=== PATIENT | male | born 1975 | race American Indian/Alaskan Native ===

== ENCOUNTER 2017-05-08 05:22 | Emergency (ER) | payer OTHER ==
[2017-05-08 05:34] VITALS: BP 131/74
--- NOTE | 2017-05-08 06:36 | XRay Report ---
FINAL REPORT EXAM: XR CHEST ROUTINE 2V HISTORY: VIJAY TECHNIQUE: PA and lateral views of the chest were submitted. FINDINGS: The lungs are clear. The heart size is normal. Pleural fluid is not seen. The skeletal structures are well-maintained. IMPRESSION: No active chest disease.
--- NOTE | 2017-05-08 07:57 | Emergency Department Report ---
HPI - General Chief Complaint: Dyspnea/Respdistress Time Seen by Provider: 05/08/17 07:13 - HPI HPI: Patient here before that he woke up in a panic couldn't breathe and took 25 mg of Benadryl tablet 15 minutes prior to coming to the hospital doesn't know what causes it. He said he is better now. Denies any chest pain or shortness of breath. He states that he has a history of high blood pressure and takes 2 blood pressure medication but he doesn't know the name. no similar episode in the past. He said that he feels like there is something stuck in his throat but he has not eaten anything since yesterday evening and he felt fine when he went to bed. Denies any fever or chills. Denies any cough or drainage the back of his throat. Denies any swelling of tongue or lips. Denies any swelling of throat or difficulty breathing at present. Denies any burning sensation in his mid chest. Denies any headache or nausea. Denies any pain and pain score is 0-10 ED Past Medical Hx - Past Medical History Previous Medical History?: Yes Hx Hypertension: Yes - Surgical History Past Surgical History?: Yes Additional Surgical History: leg sx - Family History Family history: hypertension - Social History Smoking Status: Never Smoker Substance Use Type: None ED Review of Systems ROS: Stated complaint: FEELS LIKE THROAT CLOSING UP, DIFFICULT BREATHING Other details as noted in HPI Comment: All other systems reviewed and negative Constitutional: no symptoms reported Eyes: denies: eye pain, eye discharge ENT: other. denies: ear pain, throat pain, congestion Respiratory: no symptoms reported, other (she reported that he had an episode where he had problem with breathing and this morning). denies: cough, orthopnea , shortness of breath, SOB with exertion, SOB at rest, stridor, wheezing Cardiovascular: other. denies: chest pain, palpitations, dyspnea on exertion, orthopnea, edema, syncope, paroxysmal nocturnal dyspnea Gastrointestinal: denies: abdominal pain, nausea, vomiting, diarrhea Musculoskeletal: denies: back pain, joint swelling, arthralgia, myalgia Skin: denies: rash Neurological: denies: headache, weakness, numbness, paresthesias, confusion, abnormal gait, vertigo Psychiatric: denies: anxiety Physical Exam - Physical Exam Vital Signs: Vital Signs 05/08/17 05:27 Temperature 97.7 F Pulse Rate 84 Respiratory 20 Rate Blood Pressure 131/74 O2 Sat by Pulse 100 Oximetry General: This is a 41-year-old male well-nourished well-developed in no acute distress. Nontoxic in appearance Physical Exam: Head: Normocephalic, atraumatic, no abrasion, no bruising and no contusion. Eyes: Biateral pupils equal and reactive to light, bilateral EOM intact.. Bilateral conjunctival and sclera without injection, normal accommodation. No nystagmus Mouth: Moist, no pharyngeal exudate or erythema. No peritonsillar abscesses. Uvula is midline and oral airways patent. Ears: Bilateral TMs pearly garcia Bilateral EAC without any redness swelling or drainage. No mastoid bone tenderness Nose: Lateral nasal mucosa are normal without any drainage Maxillary and frontal sinuses non-tender to palpate. Neck: Supple, No Cervical adenopathy, full range of motion and no C-spine tenderness. No swelling or tracheal deviation normal reflexes Cardiovascular: S1, S2. Regular rate and rhythm. No murmur. Capillary refill is less then 3 seconds. Lungs: Clear to auscultate bilaterally. No rhonchi, wheezes or rales. No chest wall tenderness. No chest contusion. No bruising to chest. MSK: Strength 5/5 in all extremities. No joint deformity or crepitus. Normal inspection. Full range of motion to all extremities. No laceration, abrasion or ecchymotic area noted. Abdomen: Non-tender to palpate in all quadrants, no guarding or rebound tenderness, positive bowel sounds in all quadrants. No CVA tenderness. No hernia, bruit or mass. No rigidity or distention. Extremities: No clubbing, cyanosis or edema. +2 pulses. No neurovascular compromise Skin: Clean, dry and intact. No rash or lesions. Neurological: GCS at 15, Pt is alert and oriented 3 speech is clear period. Bilateral hand colorist photography strong and equal. Normal gait. Negative Romberg and no pronator drift. Normal Reflexes. No motor or sensory deficit Back: No vertebral tenderness, no paraspinal tenderness. Psych: Normal mood and behavior ED Course Vital Signs 05/08/17 05:27 Temperature 97.7 F Pulse Rate 84 Respiratory 20 Rate Blood Pressure 131/74 O2 Sat by Pulse 100 Oximetry - Reevaluation(s) Reevaluation #1: 05/08/17 08:31 Patient received Decadron 10 mg IM. Patient was feeling better after he came to the emergency room. Pulse ox is 100% on room air and are read as normal EKG is stable and chest x-ray is normal. Reevaluation #2: 05/08/17 08:32 able to tolerate oral liquids in the emergency room without any difficulties swallowing. No drooling. ED Medical Decision Making - EKG Data -: EKG Interpreted by Me (attending physician) EKG shows normal: sinus rhythm (78 bpm) Rate: normal - EKG Data When compared to previous EKG there are: no significant change Interpretation: no acute changes, normal EKG - Radiology Data Radiology results: report reviewed Chest x-ray revealed no acute cardiopulmonary disease - Medical Decision Making ED course: She reports that he had an episode of difficulty breathing upon awakening this morning. He came to the emergency room to report this. Prior to coming to the emergency room he took Benadryl. Patient was not in any respiratory distress with evaluation. He was able to speak without any increased work of breathing. His lung sounds are clear. No chest wall tenderness. Oral airways patent uvula is midline. No tracheal deviation. Patient is talking in full sentences without any difficulties. His vital signs are stable with pulse ox at 100%. EKG normal sinus rhythm with no acute ST abnormalities, chest x-ray revealed no acute cardiopulmonary disease. Patient was given I Decadron 10 mg IM in emergency room. discussed patient that this is his first episode and if this recurs he needs to return to the hospital but if not he needs to follow up with subcontract administrator to have EGD done to check his esophagus. He has no problem tolerating fluids at present. I also discussed with him that he will need to follow up with his primary care physician on Wednesday. Patient was understanding disorders diagnosis and treatment plan and discharged home in stable condition to follow-up with GI and PCP. Critical care attestation.: If time is entered above; I have spent that time in minutes in the direct care of this critically ill patient, excluding procedure time. ED Disposition Clinical Impression: Sleep related abnormal swallowing, Throat fullness Disposition: DC-01 TO HOME OR SELFCARE Is pt being admited?: No Does the pt Need Aspirin: No Condition: Stable Instructions: Dyspnea (ED), Normal Exam (ED), Weight Management (ED), Obesity ( ED) Additional Instructions: Please follow up with subcontract administrator as discussed If your condition worsens return to the emergency room Follow-up with her primary care physician Referrals: [facility] [Outside] - 2-3 Days ERMIAS ARNOLD MD [Staff Physician] - 2-3 Days [facility] [Provider Group] - 05/10/17 Forms: Accompanied Note, Work/School Release Form(ED)
[2017-05-08] MEDS ORDERED: DECADRON IM ONE (08:30)
== END 2017-05-08 08:57 | disposition home or self-care (01) ==
LOC: ED 05:22
DX: F45.8 Other somatoform disorders (principal); I10 Essential (primary) hypertension
CPT/HCPCS: 71046; 93005; 93010; 96372; 99283; J1100